=== PATIENT | male | born 1995 | race Caucasian/White ===

== ENCOUNTER 2024-03-10 22:38 | Emergency (ER) | payer OTHER | END 2024-03-10 22:54 | LOC: JP.ED 22:38 | DX: F10.129 Alcohol abuse with intoxication, unspecified (principal); Y90.9 Presence of alcohol in blood, level not specified | CPT/HCPCS: 99283 ==

== ENCOUNTER 2024-11-18 18:08 | Emergency (ER) | payer MEDICAID ==
[2024-11-18] MEDS ORDERED: Naloxone 0.4 MG/ML SDV IVPUSH PRN (19:10)
[2024-11-18] MEDS: Sodium Chloride 0.9% 10 ML Syringe FLUSH PRN (19:23)
[2024-11-18 19:24] LABS: BASOPHILS ABSOLUTE AUTO 0.03 K/uL (0.00-0.10); BASOPHILS PERCENT AUTO 0.2 % (0.1-1.3); EOSINOPHILS ABSOLUTE AUTO 0.04 K/uL (0.00-0.40); EOSINOPHILS PERCENT AUTO 0.3 % (0.0-5.4); IMMATURE GRAN ABSOLUTE AUTO 0.06 K/uL (0.00-0.23); IMMATURE GRAN PERCENT AUTO 0.4 % (0.0-0.7); LYMPHOCYTES ABSOLUTE AUTO 1.67 K/uL (0.8-3.3); LYMPHOCYTES PERCENT AUTO 11.0 % (11.4-47.7); MONOCYTES ABSOLUTE AUTO 1.16 K/uL (0.20-0.90); MONOCYTES PERCENT AUTO 7.7 % (3.3-12.6); NEUTROPHILS ABSOLUTE AUTO 12.19 K/uL (1.0-7.6); NEUTROPHILS PERCENT AUTO 80.4 % (40.0-78.1); PLATELET COUNT,PLT 244 K/uL (130-375); RED BLOOD CELL COUNT 4.05 M/uL (4.14-5.76); WHITE BLOOD CELL COUNT,WBC 15.2 K/uL (3.2-11.0)
[2024-11-18] MEDS: Ampicillin/Sulbactam Na 3 GM in Sodium Chloride 0.9% 100 ML IV ONE (19:37)
[2024-11-18 19:40] LABS: BLOOD UREA NITROGEN,BUN 11.0 mg/dL (7-18); CARBON DIOXIDE,CO2 30.0 mmol/L (21-32); CHLORIDE,CL 104.0 mmol/L (100-108); CREATININE 0.7 mg/dL (0.8-1.3); EST CRCL DRUG DOSING (CG) 143.04 mL/min; ESTIMATED GFR 130.0 mL/min (>60); GLUCOSE RANDOM 97.0 mg/dL (74-106); POTASSIUM,K 3.6 mmol/L (3.6-5.2); SODIUM,NA 142.0 mmol/L (140-148)
== END 2024-11-18 20:11 ==
LOC: JP.ED 18:08
DX: S11.90XA Unspecified open wound of unspecified part of neck, initial encounter (principal); S11.91XA Laceration without foreign body of unspecified part of neck, initial encounter; F17.200 Nicotine dependence, unspecified, uncomplicated; Z95.5 Presence of coronary angioplasty implant and graft; Z79.01 Long term (current) use of anticoagulants; Z79.899 Other long term (current) drug therapy; W54.0XXA Bitten by dog, initial encounter
CPT/HCPCS: 36415; 80048; 85025; 96361; 96365; 96375; 99284; J0295; J7030; J1171